=== PATIENT | male | born 1990 | race Two or more races ===

== ENCOUNTER 2024-04-25 07:03 | Emergency (ER) | payer MEDICAID, OTHER ==
[~2024-04-25] VITALS: Ht 172.7 cm; Wt 131.1 kg
--- NOTE | 2024-04-25 08:11 | ED.PDOC ---
Musculoskeletal HPI Comments This is a 34-year-old male who is right-hand dominant that presents with a chief complaint of a work-related injury x1 day. 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 No trauma no injury. Pain is currently located to the anterior and lateral portion of the left shoulder. Symptoms are aggravated with abduction and alleviated at rest. No associated symptoms. Pain does not radiate. Pain is 0/10 at rest and described as moderate with movement. Denies fevers chills night sweats nausea vomiting redness around the shoulder Denies previous surgeries to the shoulder or significant injury Numbness/tingling down the arm Denies changes, shortness of breath Chief Complaint: Upper Extremity Time Seen by MD: 07:35 Primary Care Provider: DENIES Reviewed Notes: Nurses Notes, Medications, Allergies Allergies: Coded Allergies: NO KNOWN ALLERGIES (Unverified , 10/10/14) Information Source: Patient Mode of Arrival: Ambulatory Past Medical History PAST MEDICAL HISTORY: Denies Surgical History: Denies all surgeries Family History Family History: Unknown Social History Smoker: Cigarettes Lives In: Home All Other Systems: Reviewed and Negative (Per HPI) Physical Exam General Appearance: No Apparent Distress, Normal HEENT: Normal ENT Inspection, Pharynx Normal, TMs Normal Neck: Full Range of Motion, Non-Tender, Normal, Normal Inspection Respiratory: Chest Non-Tender, Lungs Clear, No Accessory Muscle Use, No Respiratory Distress, Normal Breath Sounds Cardiovascular: No Edema, No JVD, No Murmur, No Gallop, Normal Peripheral Pulses, Regular Rate/Rhythm Breast Exam: Deferred Gastrointestinal: No Organomegaly, Non Tender, No Pulsatile Mass, Normal Bowel Sounds, Soft Genitalia: Deferred Pelvic: Deferred Rectal: Deferred Extremities: No calf tenderness, Normal capillary refill, Normal inspection, Normal range of motion, Non-tender, No pedal edema Musculoskeletal : Location: Left Extremity Location: Shoulder ( No gross abnormality on inspection. No shoulder drop visible. No clavicular tenderness on palpation. Palpation tenderness to coracoid process and acromion process. No scapular, supraspinatus, infraspinatus tenderness to touch. Limited flexion passive movement due to pain. Pain with abduction. A[place] Cross Empty can test positive) Apperance: Normal Neurologic: Alert, No Motor Deficits, Normal Affect, Normal Mood, No Sensory Deficits Cerebellar Function: Normal Reflexes: Normal Skin: Dry, Normal Color, Warm Lymphatic: No Adenopathy Was a procedure done? Was a procedure done?: No Differential Diagnosis EXT Differential Diagnosis: Fracture, Sprain X-Ray, Labs, Meds, VS Vital Signs Date Time Temp Pulse Resp B/P (MAP) Pulse Ox O2 Delivery O2 Flow Rate FiO2 04/25/24 08:22 98.6 110 18 148/87 (107) 97 98.6 04/25/24 07:25 98.6 110 18 148/87 (107) 97 PATIENT: ROSIO PATRICIANACCT: [id number]: [id number] : 1990 LOC: ER ROOM / BED: / AGE / SEX: 34 / M ADM STATUS: REG ER SERVICE 8 ORDERING PHYSICIAN: ANALI MUNGUIA NP PROCEDURE(s): LSHD2 - L SHOULDER 2+ VIEW XRAY REASON: work injury ORDER NUMBER(s): [id number], ACCESSION NUMBER(s): [id number] CLINICAL INDICATION: trauma TECHNIQUE: 3 radiographic views of the LEFT SHOULDER were obtained. Comparison: None FINDINGS/IMPRESSION: There is no evidence of acute fracture or dislocation. The visualized joint space is well maintained. The alignment is anatomical. There is no radiopaque foreign body. ATED BY: CHENG WOODRUFF MD DICTATED DATE/TIME: 04/25/24837 SIGNED BY: CHENG WOODRUFF MD SIGNED DATE/TIME: 04/25/24837 CC: X-Ray, Labs, Meds, VS Comment Workup: XR Shoulder Findings: Unremarkable Patient does not currently demonstrate complications of dislocation such as compartment syndrome, arterial injury or nerve injury. Disposition: Discharge with strict return precautions and instructions to follow up with primary MD within 48 hours for further evaluation Time of 1ST Reevaluation: 08:42 Reevaluation 1ST: Improved Patient Education/Counseling: Diagnosis, Treatment Family Education/Counseling: Diagnosis, Treatment Departure 1 Departure Time of Disposition: 08:46 Impression: Primary Impression: Left shoulder strain Qualified Codes: S46.912A - Strain of unspecified muscle, fascia and tendon at shoulder and upper arm level, left arm, initial encounter Disposition: 01 HOME / SELF CARE / HOMELESS Condition: Stable e-Prescriptions Naproxen (Naproxen) 375 Mg Tab 1 TAB PO BIDPC for 10 Days, #20 TAB 0 Refills Prov: ANALI MUNGUIA NP 04/25/24 Discharged With: Self Critical Care Note Critical Care Time?: No Stability Stability form required: No Heart Score Heart Score: Heart Score Response (Comments) Value History N/A 0 EKG N/A 0 Age N/A 0 Risk Factors N/A 0 Troponin N/A 0 Total 0 ANALI MUNGUIA NP Apr 25, 2024 08:11
[2024-04-25 08:22] VITALS: BP 148/87; PULSE 110; RESP 18; TEMP 98.6; O2SAT 97
--- NOTE | 2024-04-25 08:38 | DVH ---
CLINICAL INDICATION: trauma TECHNIQUE: 3 radiographic views of the LEFT SHOULDER were obtained. Comparison: None FINDINGS/IMPRESSION: There is no evidence of acute fracture or dislocation. The visualized joint space is well maintained. The alignment is anatomical. There is no radiopaque foreign body.
[2024-04-25] MEDS ORDERED: NAPR-957 PO (08:48)
== END 2024-04-25 09:54 | disposition home or self-care (01) ==
LOC: ER 07:03
DX: S46.812A Strain of other muscles, fascia and tendons at shoulder and upper arm level, left arm, initial encounter (principal); F17.210 Nicotine dependence, cigarettes, uncomplicated; X58.XXXA Exposure to other specified factors, initial encounter; Y93.89 Activity, other specified; Y92.89 Other specified places as the place of occurrence of the external cause; Y99.8 Other external cause status
CPT/HCPCS: 73030